=== PATIENT | female | born 1970 | race Caucasian/White ===

== ENCOUNTER 2019-11-08 21:36 | Inpatient (IN) | payer MEDICARE, MEDICAID ==
[~2019-11-08] VITALS: Ht 165.1 cm; Wt 65.1 kg
[2019-11-08 22:11] LABS: HEMATOCRIT 37.4 % (36.0-47.0); HEMOGLOBIN 12.6 g/dl (12.0-15.5); MEAN CORPUSCULAR HEMOGLOBIN 32.4 pg (27.0-33.0); MEAN CORPUSCULAR HGB CONC 33.7 g/dl (32.0-36.5); MEAN CORPUSCULAR VOLUME 96.1 fl (80.0-96.0); PLATELET COUNT, AUTOMATED 237 10^3/uL (150-450); RED BLOOD COUNT 3.89 10^6/uL (4.00-5.40)
[2019-11-08] MEDS ORDERED: AMMO12CR7 TOP (22:43)
[2019-11-08] MEDS ORDERED: DEPA500T2 PO (22:44)
[2019-11-08] MEDS ORDERED: LACT10SO29 PO (22:45)
[2019-11-08] MEDS ORDERED: COLA100C5 PO (22:45)
[2019-11-08] MEDS ORDERED: LORA-674 PO (22:46)
[2019-11-08] MEDS ORDERED: SYNT50TA PO (22:46)
[2019-11-08 22:47] LABS: AMPHETAMINES LEVEL URINE NEGATIVE (NEGATIVE); BARBITURATES URINE NEGATIVE (NEGATIVE); BENZODIAZEPINES URINE NEGATIVE (NEGATIVE); CANNABINOIDS URINE NEGATIVE (NEGATIVE); COCAINE METABOLITE URINE NEGATIVE (NEGATIVE); METHADONE URINE NEGATIVE (NEGATIVE); OPIATES URINE NEGATIVE (NEGATIVE); PHENCYCLIDINE URINE NEGATIVE (NEGATIVE)
[2019-11-08] MEDS ORDERED: THERTAB52 PO (22:48)
[2019-11-08] MEDS ORDERED: LORA1TAB4 PO (22:48)
[2019-11-08] MEDS ORDERED: OXYB15TA14 PO (22:49)
[2019-11-08] MEDS ORDERED: MIRA3350 PO (22:50)
[2019-11-08] MEDS ORDERED: GNP8.6TA PO (22:50)
[2019-11-08] MEDS ORDERED: D 50CAP2 PO (22:52)
[2019-11-08] MEDS ORDERED: COGE1INJ IM (22:53)
[2019-11-08] MEDS ORDERED: BENZ0.5T23 PO (22:53)
[2019-11-08] MEDS ORDERED: DEPA250T2 PO (22:54)
[2019-11-08 22:56] LABS: ACETAMINOPHEN LEVEL < 2.0 UG/ML (10.0-30.0); ALBUMIN 3.4 GM/DL (3.2-5.2); ALT/SGPT 19 U/L (12-78); BILIRUBIN,DIRECT 0.2 MG/DL (0.0-0.2); BILIRUBIN,TOTAL 0.4 MG/DL (0.2-1.0); BLOOD UREA NITROGEN 14 MG/DL (7-18); CALCIUM LEVEL 9.4 MG/DL (8.5-10.1); CARBON DIOXIDE LEVEL 28 MEQ/L (21-32); CHLORIDE LEVEL 100 MEQ/L (98-107); CK-MB VALUE MASS < 1.0 NG/ML (<3.6); CPK CREATINE PHOSPHOKINASE 50 U/L (26-192); CREATININE FOR GFR 0.72 MG/DL (0.55-1.30); GLOMERULAR FILTRATION RATE > 60.0 (>51); GLUCOSE, FASTING 116 MG/DL (70-100); POTASSIUM SERUM 4.1 MEQ/L (3.5-5.1); SALICYLATE LEVEL < 1.7 MG/DL (5.0-30.0); SODIUM LEVEL 133 MEQ/L (136-145); TOTAL PROTEIN 6.4 GM/DL (6.4-8.2); TROPONIN I < 0.02 NG/ML (< 0.10)
[2019-11-08] MEDS ORDERED: CLOZ100T PO (22:57)
[2019-11-08 22:58] LABS: ETHYL ALCOHOL (ETHANOL) < 0.003 % (0.000-0.010)
--- NOTE | 2019-11-08 23:00 | REPVR ---
PROCEDURE INFORMATION: Exam: CT Head Without Contrast Exam date and time: 11/08/2019 10:42 PM Age: 49 years old Clinical indication: Altered mental status/memory loss; Confusion or disorientation TECHNIQUE: Imaging protocol: Computed tomography of the head without contrast. Radiation optimization: All CT scans at this facility use at least one of these dose optimization techniques: automated exposure control; mA and/or kV adjustment per patient size (includes targeted exams where dose is matched to clinical indication); or iterative reconstruction. COMPARISON: No relevant prior studies available. FINDINGS: Brain: There is no acute cortical infarction, intracranial hemorrhage or mass. 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 Ventricles: No ventriculomegaly. 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 Sinuses: The paranasal sinuses are clear. Mastoid air cells: The middle ear cavities and mastoid air cells are clear. Soft tissues: Unremarkable. Vasculature: Atherosclerosis. IMPRESSION: No acute intracranial findings. Electronically signed by: Shauna Garcia On 11/08/2019 23:00:05 PM
[2019-11-08] MEDS ORDERED: GUAI100L6 PO (23:03)
[2019-11-08] MEDS ORDERED: CLOZ50TA PO (23:03)
[2019-11-08] MEDS ORDERED: APAP325T4 PO (23:04)
[2019-11-08] MEDS ORDERED: DIPH50CA PO (23:05)
[2019-11-08] MEDS ORDERED: DEBR6.5S4 OTIC (23:08)
[2019-11-08] MEDS ORDERED: NEOSOI TOP (23:09)
[2019-11-08] MEDS ORDERED: KAOP262S PO (23:10)
[2019-11-08] MEDS ORDERED: [UNRECOGNIZED DRUG - CODE] PO (23:10)
[2019-11-09] MEDS ORDERED: MYLASSUD PO (00:47)
[2019-11-09] MEDS ORDERED: CLOZ25TA3 PO (00:47)
[2019-11-09] MEDS ORDERED: PINK BISMUTH SUSP 524MG/30ML ORAL SYRINGE PO PRN (01:00)
[2019-11-09] MEDS ORDERED: diphenhydrAMINE 50MG CAP PO PRN (01:00)
[2019-11-09] MEDS ORDERED: ACETAMINOPHEN TAB 650MG DOSE (2X325MG) PO PRN (01:00)
[2019-11-09] MEDS ORDERED: MAALOX 30 ML SUSP *UDC PO PRN (01:00)
[2019-11-09] MEDS ORDERED: CARBAMIDE PEROXIDE 6.5% OTIC SOLN 15ML AU PRN (01:00)
[2019-11-09] MEDS ORDERED: LORazepam 1 MG TAB PO PRN (01:00)
[2019-11-09] MEDS ORDERED: guaiFENesin SYRUP 200 MG/10 ML UDC PO PRN (01:00)
--- NOTE | 2019-11-09 01:23 | ECGEPIP ---
[facility] - ED Test Date: 2019-11-08 Pat Name: VAMSHI BURGER Department: Room: - Gender: Female Nurse Chemical Dependency: MARYANN : 1970 Requested By: RUY Castaneda Order Number: [id number] Reading MD: Derrick Whitehead Measurements Intervals [place] Rate: 97 P: 74 UT: 113 QRS: 43 QRSD: 81 T: 3 QT: 327 QTc: 416 Interpretive Statements SINUS RHYTHM WITH SHORT UT INTERVAL NONSPECIFIC T-WAVE ABNORMALITY Comparison tracing not on file Electronically Signed on 11-09-2019 1:23:37 EDT by Derrick Whitehead
[2019-11-09 01:48] VITALS: BP 132/82
--- NOTE | 2019-11-09 03:25 | REP ---
Clinical: Altered mental status. Chest pain . Comparison: None . Technique: PA and lateral. Findings: The mediastinum and cardiac silhouette are normal. The lung benton are clear and without acute consolidation, effusion, or pneumothorax. The skeletal structures are intact and normal. Impression: 1. No acute cardiopulmonary process. Electronically Signed by Rusty Colindres MD 11/09/2019 03:17 A
[2019-11-09] MEDS: LEVOTHYROXINE 50MCG TABLET (0.05MG) PO SCH (06:00)
[2019-11-09 06:35] VITALS: BP 127/78
[2019-11-09] MEDS: oxyBUTYnin *DITROPAN XL* 5 MG TABCR PO SCH (08:52)
[2019-11-09] MEDS: BENZTROPINE 0.5 MG TAB PO SCH ×2 (08:53→21:36)
[2019-11-09] MEDS: DIVALPROEX 250MG *ER* TAB PO SCH (08:53)
[2019-11-09] MEDS: SENNA 8.6 MG TAB (SENOKOT) PO SCH (08:53)
[2019-11-09] MEDS: DOCUSATE SODIUM 100 MG CAP PO SCH ×2 (08:53→21:36)
[2019-11-09] MEDS: LORATADINE 10 MG TAB PO SCH (08:53)
[2019-11-09] MEDS: LACTIC ACID 12% LOTION 225 GM BTL TOP SCH ×2 (08:54→21:37)
[2019-11-09] MEDS: LACTULOSE 20 GM/30 ML SYRUP UD PO SCH ×3 (08:54→21:37)
--- NOTE | 2019-11-09 09:11 | MHHPEPDOC ---
[facility] History & Physical History and Physical DATE OF ADMISSION: Nov 09, 2019 at 00:44 New Patient Teresa Wolf MRN: N/A Date of : N/A Date of Service: 11/09/2019 Chief Complaint "I do not know." History of Present Illness The patient is a 49-year-old woman with apparently severe MR, and paranoid schizophrenia reportedly presents to [facility] with acute mental status changes, increasing aggression and talking of as well as attacking staff. At her baseline, it appears that the patient is much more conversive, pleasant and has never had any aggression problems, but per her staff and her treatment team it appears over the last several months she has begun to become more paranoid, psychotic, bizarre and aggressive. She had been recently started on Clozaril increased 2 days prior to her presentation. She is additionally on a fair amount of Ativan. When I met with the patient she was unable to relate any meaningful history simply staring off mouthing various words. Review Of Systems Unable to obtain due to mental status. Past Psychiatric History Reportedly has been diagnosed with paranoid schizophrenia, sees Dr. Means. Currently had been on Clozaril and Ativan, previously tried on Abilify. No previous admissions in our systems. Allergies Please see below. Family Psychiatric History Unknown due to mental status. Social History Currently lives in a group house, is under legal guardianship through her mother who apparently is quite medically ill and this appears be transferring to her aunt. Substance Abuse History Unclear but no toxicology present. Medical History Has cardiometabolic age related problems. Mental Status Examination General: Well dressed with good hygiene Speech: Minimal. Thought processes: Tangential. MSK: Smooth and coordinated gait, no signs of tremors or involuntary orofacial movements Thought content: Unknown. Abstract reasoning, and computation: Impaired. Description of associations: Impaired. Description of abnormal or psychotic thoughts: Unknown. Judgment: Limited. Insight: Limited. Orientation: Alert and orientated to self and person as well as place. Cognition: Slowed, perhaps at baseline. Recent and remote memory: Unable to query due to mental processes tangentiality. Attention span and concentration: Impaired. Fund of knowledge: Adequate Mood: "okay" Affect: Euthymic with a full range Diagnoses Unspecified psychotic disorder. Intellectual disability, unspecified. Assessment and Plan Unspecified psychotic disorder. We will discontinue Clozaril as poor combination with Ativan. We will start Vraylar 1.5 mg nightly as different mechanism of action especially in treatment resistant cases. Intellectual disability: Unclear baseline, however, reportedly is far off. Disposition Patient will need to be retained further as she is far from her baseline and observed, it does not appear that her UTI has any bearing on her presentation and likely will need to be on an involuntary extension. Problem List 1. Altered thoughts. 2. Risk for aggression. Initial Treatment Plan 1. Patient was admitted on a 9.39 legal status. 2. Complete history was obtained. 3. With patients permission, family will be contacted and database will be expanded. 4. Patients medication regimen will be reviewed and changed accordingly. 5. Patient will be provided with protected environment. 6. Patient will be treated with individual, group, and milieu therapies. 7. Patient will receive supportive psych-education. 8. Discharge planning will commence immediately. 9. Outpatient follow-up treatment will be strongly recommended. 10. The initial treatment plan will focus initially on: Estimated Length Of Stay 3 days. Time Spent 70 minutes with greater than 50% of time spent on counseling/coordination of care. Vital Signs Vital Signs Date Time Temp Pulse Resp B/P (MAP) Pulse Ox O2 Delivery O2 Flow Rate FiO2 11/09/19 06:35 98.1 93 12 127/78 (94) 97 Room Air Laboratory Data 24H Labs Laboratory Tests 2 11/08/19 21:57: Nucleated Red Blood Cells % (auto) 0.0, Anion Gap 5L, Glomerular Filtration Rate > 60.0, Calcium Level 9.4, Total Bilirubin 0.4, Direct Bilirubin 0.2, Aspartate Amino Transf (AST/SGOT) 10, Alanine Aminotransferase (ALT/SGPT) 19, Alkaline Phosphatase 63, Total Creatine Kinase 50, Creatine Kinase MB < 1.0, Creatine Kinase MB Relative Index 2.00, Troponin I < 0.02, Total Protein 6.4, Albumin 3.4, Albumin/Globulin Ratio 1.13, Thyroid Stimulating Hormone (TSH) 2.140, Salicylates Level < 1.7L, Acetaminophen Level < 2.0L, Ethyl Alcohol Level < 0.0 03 11/08/19 22:02: Urine Opiates Screen NEGATIVE, Urine Methadone Screen NEGATIVE, Urine Barbiturates Screen NEGATIVE, Urine Phencyclidine Screen NEGATIVE, Urine Amphetamines Screen NEGATIVE, Urine Benzodiazepines Screen NEGATIVE, Urine Cocaine Metabolite Screen NEGATIVE, Urine Cannabinoids Screen NEGATIVE 11/08/19 22:03: Urine Color YELLOW, Urine Appearance CLEAR, Urine pH 6.0, Urine Specific [place] 1.011, Urine Protein NEGATIVE, Urine Glucose (UA) NEGATIVE, Urine Ketones TRACEH, Urine Blood NEGATIVE, Urine Nitrite NEGATIVE, Urine Bilirubin NEGATIVE, Urine Urobilinogen 0.2, Urine Leukocyte Esterase 1+H, Urine WBC (Auto) 11H, Urine RBC (Auto) 1, Urine Hyaline Casts (Auto) 0, Urine Bacteria (Auto) NEGATIVE, Urine Squamous Epithelial Cells 0, Urine Sperm (Auto) CBC/BMP Laboratory Tests 11/08/19 21:57 Medications Scheduled Ammonium Lactate (Ammonium Lactate) 12% Cream..g., 1 APLCT TOP BID, (Reported) Benztropine Mesylate (Benztropine Mesylate) 0.5 Mg Tablet, 0.5 MG PO BID, (Reported) Cholecalciferol (Vitamin D3) (Vitamin D3) 125 Mcg Capsule, 125 MCG PO DAILY, (Reported) Clozapine (Clozaril) 100 Mg Tablet, 200 MG PO BID, (Reported) Clozapine (Clozapine) 25 Mg Tablet, 50 MG PO QHS, (Reported) Divalproex Sodium (Depakote ER) 500 Mg Tab.er.24h, 1,000 MG PO QHS, (Reported) Divalproex Sodium (Depakote ER) 250 Mg Tab.er.24h, 250 MG PO DAILY, (Reported) Docusate Sodium (Colace) 100 Mg Capsule, 100 MG PO BID, (Reported) Lactulose (Lactulose) 10 Gm/15 Ml Solution, 15 ML PO TID, (Reported) Levothyroxine Sodium (Synthroid) 50 Mcg Tablet, 50 MCG PO DAILY, (Reported) Loratadine (Loratadine) 10 Mg Tablet, 10 MG PO DAILY, (Reported) Multivitamin,Therapeutic (Thera-Tabs) 1 Each Tablet, 1 TAB PO DAILY, (Reported) Oxybutynin Chloride (Oxybutynin Chloride ER) 15 Mg Tab.er.24, 15 MG PO DAILY, (Reported) Polyethylene Glycol 3350 (Miralax) 119 Gm Powder, 17 GRAM PO Q2D, (Reported) dissolve in water Sennosides (Senna Lax) 8.6 Mg Tablet, 17.2 MG PO DAILY, (Reported) Scheduled PRN Acetaminophen (Acetaminophen) 325 Mg Tablet, 650 MG PO Q4H PRN for pain or fever, (Reported) Aluminum/Magnesium/Simeth (Mag-Al Plus Suspension) 30 Ml Oral.susp, 30 ML PO Q4H PRN for HEARTBURN/INDIGESTION, (Reported) Bismuth Subsalicylate (Bismatrol) 525 Mg/15 Ml Oral.susp, 30 ML PO Q4H PRN for AFTER EACH LOOSE STOOL, (Reported) Bismuth Subsalicylate (Kaopectate) 262 Mg/15 Ml Oral.susp, 15 ML PO DAILY PRN for DIARRHEA, (Reported) Carbamide Peroxide (Debrox) 15 Ml Drops, 5 DROP OTIC BID PRN for EXCESSIVE EAR WAX, (Reported) Diphenhydramine HCl (Diphenhydramine HCl) 50 Mg Capsule, 50 MG PO DAILY PRN for ALLERGY SYMPTOMS, (Reported) Guaifenesin (Guaifenesin) 100 Mg/5 Ml Liquid, 10 ML PO Q4HP PRN for COUGH, (Re ported) Lorazepam (Lorazepam) 1 Mg Tablet, 1 MG PO BID PRN for ANXIETY, (Reported) Neomycin/Bacitracin/Polymyxinb (Triple Antibiotic Ointment) 1 Each Oint.pack, 1 APPLIC TOP TID PRN for ITCHING/SWELLING, (Reported) Allergies Coded Allergies: Cashew (Verified Allergy, Unknown, unknown, 11/08/19) aspirin (Verified Allergy, Unknown, unknown, 11/08/19) CIRILO CONTRERAS DO Nov 09, 2019 09:11
[2019-11-09] MEDS ORDERED: PILL CUTTER 1 EACH XX PRN (13:00)
--- NOTE | 2019-11-09 13:27 | HPEPDOC ---
General Date of Admission Nov 09, 2019 at 00:44 Date of Service: Nov 09, 2019 Chief Complaint The patient is a 49-year-old female admitted with a reason for visit of Unspecified Psychosis. Source: Patient, Old records Exam Limitations: Clinical conditions, Other (underlying developmental delay) Timing/Duration: Unsure Associated Symptoms: Unobtainable, Denies Symptoms History of Present Illness 49-year-old female with prior diagnoses of paranoid schizophrenia and developmental delay presents to inpatient psychiatry unit for unspecified psychosis. Hospitalist service was consult and for medical clearance. Due to "patient's clinical condition, unable to obtain any history of use. Patient currently appears to be withdrawn, and anxious. Patient refuses to answer any questions during the entire interview. Home Medications Scheduled Ammonium Lactate (Ammonium Lactate) 12% Cream..g., 1 APLCT TOP BID, (Reported) Benztropine Mesylate (Benztropine Mesylate) 0.5 Mg Tablet, 0.5 MG PO BID, (Reported) Cholecalciferol (Vitamin D3) (Vitamin D3) 125 Mcg Capsule, 125 MCG PO DAILY, (Reported) Clozapine (Clozaril) 100 Mg Tablet, 200 MG PO BID, (Reported) Clozapine (Clozapine) 25 Mg Tablet, 50 MG PO QHS, (Reported) Divalproex Sodium (Depakote ER) 500 Mg Tab.er.24h, 1,000 MG PO QHS, (Reported) Divalproex Sodium (Depakote ER) 250 Mg Tab.er.24h, 250 MG PO DAILY, (Reported) Docusate Sodium (Colace) 100 Mg Capsule, 100 MG PO BID, (Reported) Lactulose (Lactulose) 10 Gm/15 Ml Solution, 15 ML PO TID, (Reported) Levothyroxine Sodium (Synthroid) 50 Mcg Tablet, 50 MCG PO DAILY, (Reported) Loratadine (Loratadine) 10 Mg Tablet, 10 MG PO DAILY, (Reported) Multivitamin,Therapeutic (Thera-Tabs) 1 Each Tablet, 1 TAB PO DAILY, (Reported) Oxybutynin Chloride (Oxybutynin Chloride ER) 15 Mg Tab.er.24, 15 MG PO DAILY, (Reported) Polyethylene Glycol 3350 (Miralax) 119 Gm Powder, 17 GRAM PO Q2D, (Reported) dissolve in water Sennosides (Senna Lax) 8.6 Mg Tablet, 17.2 MG PO DAILY, (Reported) Scheduled PRN Acetaminophen (Acetaminophen) 325 Mg Tablet, 650 MG PO Q4H PRN for pain or fever, (Reported) Aluminum/Magnesium/Simeth (Mag-Al Plus Suspension) 30 Ml Oral.susp, 30 ML PO Q4H PRN for HEARTBURN/INDIGESTION, (Reported) Bismuth Subsalicylate (Bismatrol) 525 Mg/15 Ml Oral.susp, 30 ML PO Q4H PRN for AFTER EACH LOOSE STOOL, (Reported) Bismuth Subsalicylate (Kaopectate) 262 Mg/15 Ml Oral.susp, 15 ML PO DAILY PRN for DIARRHEA, (Reported) Carbamide Peroxide (Debrox) 15 Ml Drops, 5 DROP OTIC BID PRN for EXCESSIVE EAR WAX, (Reported) Diphenhydramine HCl (Diphenhydramine HCl) 50 Mg Capsule, 50 MG PO DAILY PRN for ALLERGY SYMPTOMS, (Reported) Guaifenesin (Guaifenesin) 100 Mg/5 Ml Liquid, 10 ML PO Q4HP PRN for COUGH, (Reported) Lorazepam (Lorazepam) 1 Mg Tablet, 1 MG PO BID PRN for ANXIETY, (Reported) Neomycin/Bacitracin/Polymyxinb (Triple Antibiotic Ointment) 1 Each Oint.pack, 1 APPLIC TOP TID PRN for ITCHING/SWELLING, (Reported) Allergies Coded Allergies: Cashew (Verified Allergy, Unknown, unknown, 11/08/19) aspirin (Verified Allergy, Unknown, unknown, 11/08/19) Past Medical History Medical History Unable to obtain as patient is not cooperative and underlying clinical condition Surgical History Unable to obtain as patient is not cooperative and underlying clinical condition Family History Unable to obtain as patient is not cooperative and underlying clinical condition Social History * Smoker: Denies Alcohol: Denies Drugs: denies Recent Travel/Sick Contacts: Denies: Recent travel, Recent sick contacts Unable to obtain as patient is not cooperative and underlying clinical condition A-FIB/CHADSVASC A-FIB History Current/History of A-Fib/PAF?: No Review of Systems Other systems Unable to obtain due to clinical condition Physical Examination General Exam: Positive: Alert, No Acute Distress (currently appears to be calm but suspicious. She is refusing to answer questions. Appears to be comfortable); Negative: Cooperative Eye Exam: Positive: PERRLA, Conjunctiva & lids normal, EOMI; Negative: Sclera icteric ENT Exam: Positive: Atraumatic, Mucous membr. moist/pink, Pharynx Normal Neck Exam: Positive: Supple; Negative: JVD Chest Exam: Positive: Clear to auscultation, Normal air movement Heart Exam: Positive: Rate Normal, Regular Rhythm, Normal S1, Normal S2; Negative: Murmurs Abdomen Exam: Positive: Normal bowel sounds, Soft; Negative: Tenderness, Hepatospenomegaly Extremity Exam: Positive: Normal pulses; Negative: Clubbing, Edema Skin Exam: Positive: Nl turgor and temperature; Negative: Rash, Breakdown Neuro Exam: Positive: Normal Gait, Normal Speech, Strength at 5/5 X4 ext, Normal Tone, Sensation Intact Psych Exam: Positive: Other (unable to assess mental status as patient refusing to answer questions. Patient appears to be suspicious. Affect appears to be flat.) Vital Signs Vital Signs Date Time Temp Pulse Resp B/P (MAP) Pulse Ox O2 Delivery O2 Flow Rate FiO2 11/09/19 06:35 98.1 93 12 127/78 (94) 97 Room Air Laboratory Data Labs 24H Laboratory Tests 2 11/08/19 21:57: Nucleated Red Blood Cells % (auto) 0.0, Anion Gap 5L, Glomerular Filtration Rate > 60.0, Calcium Level 9.4, Total Bilirubin 0.4, Direct Bilirubin 0.2, Aspartate Amino Transf (AST/SGOT) 10, Alanine Aminotransferase (ALT/SGPT) 19, Alkaline Phosphatase 63, Total Creatine Kinase 50, Creatine Kinase MB < 1.0, Creatine Kinase MB Relative Index 2.00, Troponin I < 0.02, Total Protein 6.4, Albumin 3.4, Albumin/Globulin Ratio 1.13, Thyroid Stimulating Hormone (TSH) 2.140, Salicylates Level < 1.7L, Acetaminophen Level < 2.0L, Ethyl Alcohol Level < 0.003 11/08/19 22:02: Urine Opiates Screen NEGATIVE, Urine Methadone Screen NEGATIVE, Urine Barbiturates Screen NEGATIVE, Urine Phencyclidine Screen NEGATIVE, Urine Amphetamines Screen NEGATIVE, Urine Benzodiazepines Screen NEGATIVE, Urine Cocai ne Metabolite Screen NEGATIVE, Urine Cannabinoids Screen NEGATIVE 11/08/19 22:03: Urine Color YELLOW, Urine Appearance CLEAR, Urine pH 6.0, Urine Specific [place] 1.011, Urine Protein NEGATIVE, Urine Glucose (UA) NEGATIVE, Urine Ketones TRACEH, Urine Blood NEGATIVE, Urine Nitrite NEGATIVE, Urine Bilirubin NEGATIVE, Urine Urobilinogen 0.2, Urine Leukocyte Esterase 1+H, Urine WBC (Auto) 11H, Urine RBC (Auto) 1, Urine Hyaline Casts (Auto) 0, Urine Bacteria (Auto) NEGATIVE, Urine Squamous Epithelial Cells 0, Urine Sperm (Auto) CBC/BMP Laboratory Tests 11/08/19 21:57 Microbiology Microbiology 11/08/19 Urine Culture, Received Pending RAD Interpretation STUDY: CXR Rad Actions: Report Reviewed, Films Reviewed RAD Interpretation: Normal STUDY: CT head Rad Actions: Report Reviewed RAD Interpretation: Normal Assessment/Plan 49-year-old female with past medical history of paranoid schizophrenia and developmental delay [facility]. Currently unable to obtain a detailed history from patient as she is refusing to answer questions. On physical exam, no gross abnormalities were found. Review of her lab work will also reveals possible UTI but not much else. CT head shows no intracranial process and chest x-rays clear. She does seem to have a possible asymptomatic bacteriuria versus UTI although it is difficult to differentiate because patient is not speaking to me. I highly doubt that this is the cause of her current psychosis however and believe that this may just her baseline given her hx of pyschiatric illness. Based on my current exam, I see no contraindications for treatment in the inpatient psychiatry unit. Patient is medically clear. Plan / VTE VTE Prophylaxis Ordered?: Yes Plan Plan Asymptomatic bacteriuria versus UTI Unclear as patient is not speaking to me regarding her symptoms. She does have 11 WBCs in the urine which indicates possible infection. Given her current mental status, would recommend treatment for 3 days. - Recommend Cefpodoxime 100 mg twice a day for 3 days - Follow-up urine culture Paranoid schizophrenia - We'll defer management and medications to psychiatric team Developmental delay - We'll defer management psychiatric team Hospital service to sign off at this time. Please feel free to reconsult us at any time regarding this patient. Thank you for this most interesting consult. RASTA HOFFMAN MD Nov 09, 2019 13:27
[2019-11-09] MEDS: CARIPRAZINE 1.5MG CAPSULE (VRAYLAR) PO SCH (21:36)
[2019-11-09] MEDS: DIVALPROEX 500MG *ER* TAB PO SCH (21:37)
[2019-11-10] MEDS: LEVOTHYROXINE 50MCG TABLET (0.05MG) PO SCH (06:16)
[2019-11-10 06:38] VITALS: BP 125/68
[2019-11-10] MEDS: MIRALAX *UNIT DOSE* 17GM PACKET PO SCH (09:00)
[2019-11-10] MEDS: DOCUSATE SODIUM 100 MG CAP PO SCH ×2 (09:00→21:58)
[2019-11-10] MEDS: LACTIC ACID 12% LOTION 225 GM BTL TOP SCH ×2 (09:00→21:58)
[2019-11-10] MEDS: LACTULOSE 20 GM/30 ML SYRUP UD PO SCH ×3 (09:00→21:58)
[2019-11-10] MEDS: BENZTROPINE 0.5 MG TAB PO SCH ×2 (09:00→21:58)
[2019-11-10] MEDS: oxyBUTYnin *DITROPAN XL* 5 MG TABCR PO SCH (09:00)
[2019-11-10] MEDS: DIVALPROEX 250MG *ER* TAB PO SCH (09:00)
[2019-11-10] MEDS: SENNA 8.6 MG TAB (SENOKOT) PO SCH (09:00)
[2019-11-10] MEDS: LORATADINE 10 MG TAB PO SCH (09:00)
--- NOTE | 2019-11-10 09:28 | MHIPNPDOC ---
[facility] Progress Note Progress Note Inpatient Progress Note Teresa Wolf MRN: N/A Date of : N/A Date of Service: 11/10/2019 History of Present Illness The patient is a 49-year-old woman with apparently severe MR, and paranoid schizophrenia reportedly presents to [facility] with acute mental status changes, increasing aggression and talking of as well as attacking staff. At her baseline, it appears that the patient is much more conversive, pl easant and has never had any aggression problems, but per her staff and her treatment team it appears over the last several months she has begun to become more paranoid, psychotic, bizarre and aggressive. She had been recently started on Clozaril increased 2 days prior to her presentation. She is additionally on a fair amount of Ativan. When I met with the patient she was unable to relate any meaningful history simply staring off mouthing various words. Interval History The patient is met with today. She is able to converse a little more freely, she does reportedly have an upset stomach and had thrown up. She is unable to engage in much of a meeting, she is more conversive with more yes and no answers rather than completely meeting our statements. Her psychiatrist had called the unit responding to a inquiry. The patient otherwise has been staying in her room the entire time. Review Of Systems Unable to engage due to mental status. Psychotherapy None on this visit. Vital Signs Reviewed. Mental Status Examination General: Well dressed with good hygiene Speech: Minimal. Thought processes: Tangential. MSK: Smooth and coordinated gait, no signs of tremors or involuntary orofacial movements Thought content: Unknown. Abstract reasoning, and computation: Impaired. Description of associations: Impaired. Description of abnormal or psychotic thoughts: Unknown. Judgment: Limited. Insight: Limited. Orientation: Alert and orientated to self and person as well as place. Cognition: Slowed, perhaps at baseline. Recent and remote memory: Unable to query due to mental processes tangentiality. Attention span and concentration: Impaired. Fund of knowledge: Adequate Mood: "okay" Affect: Euthymic with a full range Diagnoses Unspecified psychotic disorder. Intellectual disability, unspecified. Assessment and Plan Unspecified psychotic disorder: Continue Vraylar 1.5 mg nightly. Continue to taper down Ativan slowly Intellectual disability: Unclear baseline, however, reportedly is far off. Disposition Patient will need a further inpatient admission due to severe impairing psychosis on top of her intellectual disability it is unclear as to the contribution from each, however, it appears reports support that she is far below her baseline indicating the presence of an acute mental disorder. Time Spent 15 minutes. Wednesday Vital Signs Vital Signs Date Time Temp Pulse Resp B/P (MAP) Pulse Ox O2 Delivery O2 Flow Rate FiO2 11/10/19 06:38 98.1 93 12 125/68 (87) 97 Room Air Current Medications Current Medications Medications (Trade) Dose Ordered Sig/Phyllis Route PRN Reason Start Time Stop Time Status Last Admin Dose Admin Acetaminophen (Tylenol Tab) 650 mg Q4H PRN PO pain or fever 11/09/19 01:00 Al Hydrox/Mg Hydrox/Simethicone (Mylanta) 30 ml Q4H PRN PO HEARTBURN/INDIGESTION 11/09/19 01:00 Benztropine Mesylate (Cogentin) 0.5 mg BID PO 11/09/19 09:00 11/09/19 21:36 Bismuth Subsalicylate (Pepto Bismol) 15 ml DAILY PRN PO DIARRHEA 11/09/19 01:00 Carbamide Peroxide (Debrox) 5 drop BID PRN AU EXCESSIVE EAR WAX 11/09/19 01:00 11/13/19 00:59 Cariprazine (Vraylar) 1.5 mg QHS PO 11/09/19 21:00 11/09/19 21:36 Diphenhydramine HCl (Benadryl) 50 mg DAILY PRN PO ALLERGY SYMPTOMS 11/09/19 01:00 Divalproex Sodium (Depakote Er) 250 mg DAILY PO 11/09/19 09:00 11/09/19 08:53 Divalproex Sodium (Depakote Er) 1,000 mg QHS PO 11/09/19 21:00 11/09/19 21:37 Docusate Sodium (Colace) 100 mg BID PO 11/09/19 09:00 11/09/19 21:36 Guaifenesin (Robitussin) 10 ml Q4HP PRN PO COUGH 11/09/19 01:00 Home Med (Med Rec Complete!) ASDIRECTED XX 11/09/19 01:00 11/09/19 00:50 DC Lactic Acid (Lac-Hydrin 12% Lotion) 1 dose BID TOP 11/09/19 09:00 11/09/19 21:37 Lactulose (Cephulac) 15 ml TID PO 11/09/19 09:00 11/09/19 21:37 Levothyroxine Sodium (Synthroid) 50 mcg DAILY@0600 PO 11/09/19 06:00 11/10/19 06:16 Loratadine (Claritin) 10 mg DAILY PO 11/09/19 09:00 11/09/19 08:53 Lorazepam (Ativan) 0.75 mg BID PRN PO ANXIETY 11/09/19 13:00 Lorazepam (Ativan) 1 mg BID PRN PO ANXIETY 11/09/19 01:00 11/09/19 12:54 DC Oxybutynin Chloride (Ditropan Xl) 15 mg DAILY PO 11/09/19 09:00 11/09/19 08:52 Polyethylene Glycol (Miralax) 1 pkt Q2D PO 11/10/19 09:00 Senna (Senokot) 2 tab DAILY PO 11/09/19 09:00 11/09/19 08:53 Allergies Coded Allergies: Cashew (Verified Allergy, Unknown, unknown, 11/08/19) aspirin (Verified Allergy, Unknown, unknown, 11/08/19) CIRILO CONTRERAS DO Nov 10, 2019 09:28
[2019-11-10 16:00] VITALS: BP 110/80
[2019-11-10] MEDS: DIVALPROEX 500MG *ER* TAB PO SCH (21:58)
[2019-11-10] MEDS: CARIPRAZINE 1.5MG CAPSULE (VRAYLAR) PO SCH (21:58)
[2019-11-11] MEDS: LORazepam 0.5 MG TAB PO PRN (03:21)
[2019-11-11] MEDS: LEVOTHYROXINE 50MCG TABLET (0.05MG) PO SCH (05:48)
[2019-11-11] MEDS ORDERED: OLANZapine ORAL DISINTEGRATING TAB 5MG PO ONE (06:15)
[2019-11-11] MEDS: BENZTROPINE 0.5 MG TAB PO SCH ×2 (08:34→22:07)
[2019-11-11] MEDS: oxyBUTYnin *DITROPAN XL* 5 MG TABCR PO SCH (08:35)
[2019-11-11] MEDS: DOCUSATE SODIUM 100 MG CAP PO SCH ×2 (08:35→22:06)
[2019-11-11] MEDS: DIVALPROEX 250MG *ER* TAB PO SCH (08:35)
[2019-11-11] MEDS: LORATADINE 10 MG TAB PO SCH (08:35)
[2019-11-11] MEDS: SENNA 8.6 MG TAB (SENOKOT) PO SCH (08:35)
[2019-11-11] MEDS: LACTULOSE 20 GM/30 ML SYRUP UD PO SCH ×3 (08:36→22:06)
[2019-11-11] MEDS: LACTIC ACID 12% LOTION 225 GM BTL TOP SCH ×2 (15:19→22:06)
[2019-11-11 16:19] VITALS: BP 123/88
[2019-11-11] MEDS ORDERED: ONDANSETRON 4 MG ORAL DISINTEGRATING TAB PO PRN (17:45)
[2019-11-11 17:58] LABS: BASO % 0.2 % (0.0-1.0); EOS % 0.1 % (0.0-3.0); HEMATOCRIT 38.2 % (36.0-47.0); HEMOGLOBIN 12.8 g/dl (12.0-15.5); LYMPH # 3.9 10^3/uL (1.5-5.0); LYMPH % 31.9 % (24.0-44.0); MEAN CORPUSCULAR HEMOGLOBIN 33.1 pg (27.0-33.0); MEAN CORPUSCULAR HGB CONC 33.5 g/dl (32.0-36.5); MEAN CORPUSCULAR VOLUME 98.7 fl (80.0-96.0); MONO # 1.1 10^3/uL (0.0-0.8); NEUTROPHILS # 7.2 10^3/uL (1.5-8.5); NEUTROPHILS % 58.6 % (36.0-66.0); PLATELET COUNT, AUTOMATED 250 10^3/uL (150-450); RED BLOOD COUNT 3.87 10^6/uL (4.00-5.40); WHITE BLOOD COUNT 12.2 10^3/uL (4.0-10.0)
[2019-11-11 18:31] LABS: ALBUMIN 3.3 GM/DL (3.2-5.2); ALT/SGPT 28 U/L (12-78); BILIRUBIN,TOTAL 0.3 MG/DL (0.2-1.0); BLOOD UREA NITROGEN 14 MG/DL (7-18); CALCIUM LEVEL 9.2 MG/DL (8.5-10.1); CARBON DIOXIDE LEVEL 28 MEQ/L (21-32); CHLORIDE LEVEL 104 MEQ/L (98-107); CREATININE FOR GFR 0.58 MG/DL (0.55-1.30); GLOMERULAR FILTRATION RATE > 60.0 (>51); GLUCOSE, FASTING 92 MG/DL (70-100); SODIUM LEVEL 138 MEQ/L (136-145); TOTAL PROTEIN 6.2 GM/DL (6.4-8.2)
--- NOTE | 2019-11-11 18:35 | MHIPNPDOC ---
[facility] Progress Note Progress Note DATE OF SERVICE: 11/11/19 HISTORY: As per Dr. Navarro: "The patient is a 49-year-old woman with apparently severe MR, and paranoid schizophrenia reportedly presents to [facility] with acute mental status changes, increasing aggression and talking of as well as attacking staff. At her baseline, it appears that the patient is much more conversive, pleasant and has never had any aggression problems, but per her staff and her treatment team it appears over the last several months she has begun to become more paranoid, psychotic, bizarre and aggressive. She had been recently started on Clozaril increased 2 days prior to her presentation. She is additionally on a fair amount of Ativan. When I met with the patient she was unable to relate any meaningful history simply staring off mouthing various words." VITAL SIGNS: See below. NEW TEST RESULTS: See below CURRENT MEDICATIONS: See below. MENTAL STATUS EXAMINATION: Patient is a 49-year old female, who is alert, dressed in hospital clothes, with good hygiene. Speech: Is impoverished, she is repetitive, she needs promptig but even when she is prompted, she says "yeah". Language skills are poor Thought processes including: concrete, delayed. Thought content: she has anxious thoughts about her tax return. Abstract reasoning, and computation: poor. Description of associations: poor. Description of abnormal or psychotic thoughts: I was unable to elicit if she is suffering thought delusions or if he is experiencing TAV hallucinations. She was not responding to internal stimuli at that time and she ws agreable to speak with me, she was not guarded with me Judgment: Poor Insight: Poor. Orientation: Not oriented Recent and remote memory: Limited Attention span and concentration: Poor Language: limited, poor Fund of knowledge: below verge, patient has an intellectual disability Mood: anxious Affect: congruent with mood DIAGNOSES: Unspecified psychotic disorder. Intellectual disability, unspecified. ASSESSMENT: The patient had been vomiting, as it was reported by her Nurse, Shelli Gomez. She said she was going to throw up as I was interviewing her by zoom and she did. Shelli, her Nurse informed me that she had to wash her hair because she had vomit on it. She didn't have fever, her V/S wee stable but I ordered a CBC with differential and a CMP to r/o other medical problems. The patient seems to be anxious due to "taxes", she mentioned this word seveal times and she seemed anxious. Prescribed Zofran too, MANAGEMENT PLAN: -CMP -CBC with differential -Zofran 4 mgs PO Q6H PRN for nausea/vomiting TIME SPENT: 20 minutes. Vital Signs Vital Signs Date Time Temp Pulse Resp B/P (MAP) Pulse Ox O2 Delivery O2 Flow Rate FiO2 11/11/19 16:19 98.9 104 16 123/88 (100) 11/11/19 10:37 Room Air 11/10/19 06:38 97 Current Medications Current Medications Medications (Trade) Dose Ordered Sig/Phyllis Route PRN Reason Start Time Stop Time Status Last Admin Dose Admin Acetaminophen (Tylenol Tab) 650 mg Q4H PRN PO pain or fever 11/09/19 01:00 Al Hydrox/Mg Hydrox/Simethicone (Mylanta) 30 ml Q4H PRN PO HEARTBURN/INDIGESTION 11/09/19 01:00 Benztropine Mesylate (Cogentin) 0.5 mg BID PO 11/09/19 09:00 11/11/19 08:34 Bismuth Subsalicylate (Pepto Bismol) 15 ml DAILY PRN PO DIARRHEA 11/09/19 01:00 Carbamide Peroxide (Debrox) 5 drop BID PRN AU EXCESSIVE EAR WAX 11/09/19 01:00 11/13/19 00:59 Cariprazine (Vraylar) 1.5 mg QHS PO 11/09/19 21:00 11/10/19 21:58 Diphenhydramine HCl (Benadryl) 50 mg DAILY PRN PO ALLERGY SYMPTOMS 11/09/19 01:00 Divalproex Sodium (Depakote Er) 250 mg DAILY PO 11/09/19 09:00 11/11/19 08:35 Divalproex Sodium (Depakote Er) 1,000 mg QHS PO 11/09/19 21:00 11/10/19 21:58 Docusate Sodium (Colace) 100 mg BID PO 11/09/19 09:00 11/11/19 08:35 Guaifenesin (Robitussin) 10 ml Q4HP PRN PO COUGH 11/09/19 01:00 Home Med (Med Rec Complete!) ASDIRECTED XX 11/09/19 01:00 11/09/19 00:50 DC Lactic Acid (Lac-Hydrin 12% Lotion) 1 dose BID TOP 11/09/19 09:00 11/11/19 15:19 Lactulose (Cephulac) 15 ml TID PO 11/09/19 09:00 11/11/19 15:50 Levothyroxine Sodium (Synthroid) 50 mcg DAILY@0600 PO 11/09/19 06:00 11/11/19 05:48 Loratadine (Claritin) 10 mg DAILY PO 11/09/19 09:00 11/11/19 08:35 Lorazepam (Ativan) 0.75 mg BID PRN PO ANXIETY 11/09/19 13:00 11/11/19 03:21 Lorazepam (Ativan) 1 mg BID PRN PO ANXIETY 11/09/19 01:00 11/09/19 12:54 DC Oxybutynin Chloride (Ditropan Xl) 15 mg DAILY PO 11/09/19 09:00 11/11/19 08:35 Polyethylene Glycol (Miralax) 1 pkt Q2D PO 11/10/19 09:00 Senna (Senokot) 2 tab DAILY PO 11/09/19 09:00 11/11/19 08:35 Allergies Coded Allergies: Cashew (Verified Allergy, Unknown, unknown, 11/08/19) aspirin (Verified Allergy, Unknown, unknown, 11/08/19) DORYS MUÑOZ MD Nov 11, 2019 17:12
[2019-11-11] MEDS ORDERED: OLANZapine ORAL DISINTEGRATING TAB 5MG PO SCH (21:00)
[2019-11-11] MEDS: CARIPRAZINE 1.5MG CAPSULE (VRAYLAR) PO SCH (22:04)
[2019-11-11] MEDS: DIVALPROEX 500MG *ER* TAB PO SCH (22:06)
[2019-11-11] MEDS ORDERED: OLANZapine ORAL DISINTEGRATING TAB 5MG PO PRN (22:15)
[2019-11-12] MEDS: LEVOTHYROXINE 50MCG TABLET (0.05MG) PO SCH (06:32)
[2019-11-12 06:39] VITALS: BP 134/69
[2019-11-12] MEDS: LORATADINE 10 MG TAB PO SCH (09:39)
[2019-11-12] MEDS: LACTULOSE 20 GM/30 ML SYRUP UD PO SCH ×3 (09:39→20:21)
[2019-11-12] MEDS: DOCUSATE SODIUM 100 MG CAP PO SCH ×2 (09:39→20:19)
[2019-11-12] MEDS: DIVALPROEX 250MG *ER* TAB PO SCH (09:39)
[2019-11-12] MEDS: oxyBUTYnin *DITROPAN XL* 5 MG TABCR PO SCH (09:39)
[2019-11-12] MEDS: BENZTROPINE 0.5 MG TAB PO SCH ×3 (09:39→20:18)
[2019-11-12] MEDS: MIRALAX *UNIT DOSE* 17GM PACKET PO SCH (09:39)
[2019-11-12] MEDS: SENNA 8.6 MG TAB (SENOKOT) PO SCH (09:39)
[2019-11-12] MEDS: LACTIC ACID 12% LOTION 225 GM BTL TOP SCH ×2 (09:40→20:25)
--- NOTE | 2019-11-12 13:14 | MHIPNPDOC ---
[facility] Progress Note Progress Note DATE OF SERVICE: 11/12/19 HISTORY: As per Dr. Navarro: "The patient is a 49-year-old woman with apparently severe MR, and paranoid schizophrenia reportedly presents to [facility] with acute mental status changes, increasing aggression and talking of as well as attacking staff. At her baseline, it appears t hat the patient is much more conversive, pleasant and has never had any aggression problems, but per her staff and her treatment team it appears over the last several months she has begun to become more paranoid, psychotic, bizarre and aggressive. She had been recently started on Clozaril increased 2 days prior to her presentation. She is additionally on a fair amount of Ativan. When I met with the patient she was unable to relate any meaningful history simply staring off mouthing various words." VITAL SIGNS: See below. NEW TEST RESULTS: See below CURRENT MEDICATIONS: See below. MENTAL STATUS EXAMINATION: Patient is a 49-year old female, who is alert, dressed in hospital clothes, with good hygiene. Speech: Is impoverished, she is less repetitive today, she still needs prompting but even when she is prompted, she continues to agree with me and says "yeah" to everything I say but today, she denies seeing snakes. Language skills are poor Thought processes including: concrete, delayed. Thought content: Unable to assess, she's not talking much, she only says "yeah" Abstract reasoning, and computation: poor. Description of associations: poor. Description of abnormal or psychotic thoughts: Unable to assess, she seems worried, anxious but she is not able to communicate with me and at this time she is not responding to internal stimuli. Judgment: Poor Insight: Poor. Orientation: Not oriented Recent and remote memory: Limited Attention span and concentration: Poor Language: limited, poor Fund of knowledge: below average, patient has an intellectual disability Mood: anxious Affect: congruent with mood DIAGNOSES: Unspecified psychotic disorder. Intellectual disability, unspecified. ASSESSMENT: She has not been nauseous today, she was probably drinking too much fluids. Her CBC with differential and her CMP were within normal limits yesterday. She has a hard time at night, not during the day when she is not agitated, intrusive or aggressive. Her Staff Nurse reported she was feeling a littel bit shaky and this could be secondary to anxiety or to the fact that I ordered Zyprexa Zydis 10 mgs PO last night and the night before. I have increased her Cogentin to 0.5 mgs PO TID and I have discontinued the order for Zyprexa Zydis 10 mgs PO QHS but I kept the order for 5mgs PO daily prn for agita tion. MANAGEMENT PLAN: As above TIME SPENT: 20 minutes. Vital Signs Vital Signs Date Time Temp Pulse Resp B/P (MAP) Pulse Ox O2 Delivery O2 Flow Rate FiO2 11/12/19 07:55 Room Air 11/12/19 06:39 98.5 97 14 134/69 (90) 97 Laboratory Data 24H Labs Laboratory Tests 2 11/11/19 17:47: Immature Granulocyte % (Auto) 0.2, Neutrophils (%) (Auto) 58.6, Lymphocytes (%) (Auto) 31.9, Monocytes (%) (Auto) 9.0H, Eosinophils (%) (Auto) 0.1, Basophils (%) (Auto) 0.2, Neutrophils # (Auto) 7.2, Lymphocytes # (Auto) 3.9, Monocytes # (Auto) 1.1H, Eosinophils # (Auto) 0.0, Basophils # (Auto) 0.0, Nucleated Red Blood Cells % (auto) 0.0 11/11/19 17:48: Anion Gap 6L, Glomerular Filtration Rate > 60.0, Calcium Level 9.2, Total Bilirubin 0.3, Aspartate Amino Transf (AST/SGOT) 14, Alanine Aminotransferase (ALT/SGPT) 28, Alkaline Phosphatase 65, Total Protein 6.2L, Albumin 3.3, Albumin/Globulin Ratio 1.14 CBC/BMP Laboratory Tests 11/11/19 17:47 11/11/19 17:48 Current Medications Current Medications Medications (Trade) Dose Ordered Sig/Phyllis Route PRN Reason Start Time Stop Time Status Last Admin Dose Admin Acetaminophen (Tylenol Tab) 650 mg Q4H PRN PO pain or fever 11/09/19 01:00 Al Hydrox/Mg Hydrox/Simethicone (Mylanta) 30 ml Q4H PRN PO HEARTBURN/INDIGESTION 11/09/19 01:00 Benztropine Mesylate (Cogentin) 0.5 mg BID PO 11/09/19 09:00 11/12/19 09:39 Bismuth Subsalicylate (Pepto Bismol) 15 ml DAILY PRN PO DIARRHEA 11/09/19 01:00 Carbamide Peroxide (Debrox) 5 drop BID PRN AU EXCESSIVE EAR WAX 11/09/19 01:00 11/13/19 00:59 Cariprazine (Vraylar) 1.5 mg QHS PO 11/09/19 21:00 11/11/19 22:04 Diphenhydramine HCl (Benadryl) 50 mg DAILY PRN PO ALLERGY SYMPTOMS 11/09/19 01:00 Divalproex Sodium (Depakote Er) 250 mg DAILY PO 11/09/19 09:00 11/12/19 09:39 Divalproex Sodium (Depakote Er) 1,000 mg QHS PO 11/09/19 21:00 11/11/19 22:06 Docusate Sodium (Colace) 100 mg BID PO 11/09/19 09:00 11/12/19 09:39 Guaifenesin (Robitussin) 10 ml Q4HP PRN PO COUGH 11/09/19 01:00 Home Med (Med Rec Complete!) ASDIRECTED XX 11/09/19 01:00 11/09/19 00:50 DC Lactic Acid (Lac-Hydrin 12% Lotion) 1 dose BID TOP 11/09/19 09:00 11/12/19 09:40 Lactulose (Cephulac) 15 ml TID PO 11/09/19 09:00 11/12/19 09:39 Levothyroxine Sodium (Synthroid) 50 mcg DAILY@0600 PO 11/09/19 06:00 11/12/19 06:32 Loratadine (Claritin) 10 mg DAILY PO 11/09/19 09:00 11/12/19 09:39 Lorazepam (Ativan) 0.75 mg BID PRN PO ANXIETY 11/09/19 13:00 11/11/19 03:21 Lorazepam (Ativan) 1 mg BID PRN PO ANXIETY 11/09/19 01:00 11/09/19 12:54 DC Olanzapine (ZyPREXA ZYDIS) 5 mg DAILYPRN PRN PO AGITATION 11/11/19 22:15 Olanzapine (ZyPREXA ZYDIS) 10 mg QHS PO 11/11/19 21:00 11/11/19 22:19 Ondansetron HCl (Zofran Odt) 4 mg Q6HP PRN PO NAUSEA OR VOMITING 11/11/19 17:45 11/11/19 17:46 Oxybutynin Chloride (Ditropan Xl) 15 mg DAILY PO 11/09/19 09:00 11/12/19 09:39 Polyethylene Glycol (Miralax) 1 pkt Q2D PO 11/10/19 09:00 11/12/19 09:39 Senna (Senokot) 2 tab DAILY PO 11/09/19 09:00 11/12/19 09:39 Allergies Coded Allergies: Cashew (Verified Allergy, Unknown, unknown, 11/08/19) aspirin (Verified Allergy, Unknown, unknown, 11/08/19) DORYS MUÑOZ MD Nov 12, 2019 11:21
[2019-11-12 16:20] VITALS: BP 130/71
[2019-11-12] MEDS ORDERED: OLANZapine ORAL DISINTEGRATING TAB 5MG PO PRN (17:15)
[2019-11-12] MEDS: CARIPRAZINE 1.5MG CAPSULE (VRAYLAR) PO SCH (20:18)
[2019-11-12] MEDS: LORazepam 0.5 MG TAB PO PRN (20:22)
[2019-11-12] MEDS: DIVALPROEX 500MG *ER* TAB PO SCH (20:22)
[2019-11-13] MEDS: LEVOTHYROXINE 50MCG TABLET (0.05MG) PO SCH (05:52)
[2019-11-13 06:35] VITALS: BP 110/70
--- NOTE | 2019-11-13 09:10 | MHIPNPDOC ---
[facility] Progress Note Progress Note Inpatient Progress Note Teresa Wolf MRN: N/A Date of : N/A Date of Service: 11/13/2019 History of Present Illness The patient is a 49-year-old woman with apparently severe MR, and paranoid schizophrenia reportedly presents to [facility] with acute mental status changes, increasing aggression and talking of as well as attacking staff. At her baseline, it appears that the patient is much more conversive, p leasant and has never had any aggression problems, but per her staff and her treatment team it appears over the last several months she has begun to become more paranoid, psychotic, bizarre and aggressive. She had been recently started on Clozaril increased 2 days prior to her presentation. She is additionally on a fair amount of Ativan. When I met with the patient she was unable to relate any meaningful history simply staring off mouthing various words. Interval History The patient has attempted to be met with today. She is much more able to answer questions. She has had difficulty over the weekend where she needed a 1:1 sitter as she was eating various in and around objects. The patient was notably more sedate. However, she does not able to participate in any meaningful interview. Her GI upset had resolved. Collateral information from her psychologist reveals a chronic relapsing-remitting course of this rather than a subsequently worsening course that had been related earlier. Apparently, she is being worked up for dementia at this time. Review Of Systems Unable to participate due to mental status. Psychotherapy None on this visit. Vital Signs Reviewed. Mental Status Examination General: Well dressed with good hygiene Speech: Minimal. Thought processes: Tangential. MSK: Smooth and coordinated gait, no signs of tremors or involuntary orofacial movements Thought content: Unknown. Abstract reasoning, and computation: Impaired. Description of associations: Impaired. Description of abnormal or psychotic thoughts: Unknown. Judgment: Limited. Insight: Limited. Orientation: Alert and orientated to self and person as well as place. Cognition: Slowed, perhaps at baseline. Recent and remote memory: Unable to query due to mental processes tangentiality. Attention span and concentration: Impaired. Fund of knowledge: Adequate Mood: "okay" Affect: Euthymic with a full range Diagnoses Unspecified psychotic disorder. Intellectual disability, unspecified. Assessment and Plan Unspecified psychotic disorder: Increase Vraylar to 3 mg nightly. Continue Ativan at 0.75 mg daily. Intellectual disability: Unclear baseline, however, reportedly is far off. Disposition Patient will likely be dispositioned back to home as it could have been agitation from Clozaril that provoked her presentation relapsing-remitting courses consistent with a type of dementia. Time Spent 15 minutes [id number]. Wednesday Vital Signs Vital Signs Date Time Temp Pulse Resp B/P (MAP) Pulse Ox O2 Delivery O2 Flow Rate FiO2 11/13/19 06:35 98.4 89 14 110/70 (83) 97 Room Air Current Medications Current Medications Medications (Trade) Dose Ordered Sig/Phyllis Route PRN Reason Start Time Stop Time Status Last Admin Dose Admin Acetaminophen (Tylenol Tab) 650 mg Q4H PRN PO pain or fever 11/09/19 01:00 Al Hydrox/Mg Hydrox/Simethicone (Mylanta) 30 ml Q4H PRN PO HEARTBURN/INDIGESTION 11/09/19 01:00 Benztropine Mesylate (Cogentin) 0.5 mg BID PO 11/09/19 09:00 11/12/19 11:21 DC 11/12/19 09:39 Benztropine Mesylate (Cogentin) 0.5 mg TID PO 11/12/19 16:00 11/12/19 20:18 Bismuth Subsalicylate (Pepto Bismol) 15 ml DAILY PRN PO DIARRHEA 11/09/19 01:00 Carbamide Peroxide (Debrox) 5 drop BID PRN AU EXCESSIVE EAR WAX 11/09/19 01:00 11/13/19 00:59 DC Cariprazine (Vraylar) 1.5 mg QHS PO 11/09/19 21:00 11/12/19 20:18 Diphenhydramine HCl (Benadryl) 50 mg DAILY PRN PO ALLERGY SYMPTOMS 11/09/19 01:00 Divalproex Sodium (Depakote Er) 250 mg DAILY PO 11/09/19 09:00 11/12/19 09:39 Divalproex Sodium (Depakote Er) 1,000 mg QHS PO 11/09/19 21:00 11/12/19 20:22 Docusate Sodium (Colace) 100 mg BID PO 11/09/19 09:00 11/12/19 20:19 Guaifenesin (Robitussin) 10 ml Q4HP PRN PO COUGH 11/09/19 01:00 Home Med (Med Rec Complete!) ASDIRECTED XX 11/09/19 01:00 11/09/19 00:50 DC Lactic Acid (Lac-Hydrin 12% Lotion) 1 dose BID TOP 11/09/19 09:00 11/12/19 09:40 Lactulose (Cephulac) 15 ml TID PO 11/09/19 09:00 11/12/19 20:21 Levothyroxine Sodium (Synthroid) 50 mcg DAILY@0600 PO 11/09/19 06:00 11/13/19 05:52 Loratadine (Claritin) 10 mg DAILY PO 11/09/19 09:00 11/12/19 09:39 Lorazepam (Ativan) 0.75 mg BID PRN PO ANXIETY 11/09/19 13:00 11/12/19 20:22 Lorazepam (Ativan) 1 mg BID PRN PO ANXIETY 11/09/19 01:00 11/09/19 12:54 DC Olanzapine (ZyPREXA ZYDIS) 5 mg DAILYPRN PRN PO AGITATION 11/11/19 22:15 11/12/19 17:18 DC 11/12/19 17:07 Olanzapine (ZyPREXA ZYDIS) 5 mg Q6HP PRN PO ANXIETY/AGITATION 11/12/19 17:15 Olanzapine (ZyPREXA ZYDIS) 10 mg QHS PO 11/11/19 21:00 11/12/19 11:19 DC 11/11/19 22:19 Ondansetron HCl (Zofran Odt) 4 mg Q6HP PRN PO NAUSEA OR VOMITING 11/11/19 17:45 11/11/19 17:46 Oxybutynin Chloride (Ditropan Xl) 15 mg DAILY PO 11/09/19 09:00 11/12/19 09:39 Polyethylene Glycol (Miralax) 1 pkt Q2D PO 11/10/19 09:00 11/12/19 09:39 Senna (Senokot) 2 tab DAILY PO 11/09/19 09:00 11/12/19 09:39 Allergies Coded Allergies: Cashew (Verified Allergy, Unknown, unknown, 11/08/19) aspirin (Verified Allergy, Unknown, unknown, 11/08/19) CIRILO CONTRERAS DO Nov 13, 2019 09:10
[2019-11-13] MEDS: LORATADINE 10 MG TAB PO SCH (10:04)
[2019-11-13] MEDS: DIVALPROEX 250MG *ER* TAB PO SCH (10:05)
[2019-11-13] MEDS: BENZTROPINE 0.5 MG TAB PO SCH ×3 (10:05→21:44)
[2019-11-13] MEDS: oxyBUTYnin *DITROPAN XL* 5 MG TABCR PO SCH (10:05)
[2019-11-13] MEDS: DOCUSATE SODIUM 100 MG CAP PO SCH ×2 (10:05→21:44)
[2019-11-13] MEDS: SENNA 8.6 MG TAB (SENOKOT) PO SCH (10:05)
[2019-11-13] MEDS: LACTULOSE 20 GM/30 ML SYRUP UD PO SCH ×3 (10:05→21:46)
[2019-11-13] MEDS: LACTIC ACID 12% LOTION 225 GM BTL TOP SCH ×2 (10:05→21:46)
[2019-11-13] MEDS ORDERED: LORazepam 0.5 MG TAB PO PRN ×2 (11:45→14:00)
[2019-11-13] MEDS ORDERED: LORazepam 0.5 MG TAB PO STA (14:04)
[2019-11-13 16:02] VITALS: BP 132/83
[2019-11-13] MEDS ORDERED: CARIPRAZINE 3MG CAPSULE (VRAYLAR) PO SCH (21:00)
[2019-11-13] MEDS: DIVALPROEX 500MG *ER* TAB PO SCH (21:45)
[2019-11-14] MEDS: LEVOTHYROXINE 50MCG TABLET (0.05MG) PO SCH (06:12)
[2019-11-14 06:19] VITALS: BP 125/74
--- NOTE | 2019-11-14 09:38 | MHDSPDOC ---
[facility] Discharge Summary Discharge Summary DATE OF ADMISSION: Nov 09, 2019 at 00:44 DATE OF DISCHARGE: 11/14/19 Discharge Teresa Wolf MRN: N/A Date of : N/A Date of Service: 11/14/2019 Diagnoses Unspecified psychotic disorder. Intellectual disability, unspecified. History of Present Illness The patient is a 49-year-old woman with apparently severe MR, and paranoid schizophrenia reportedly presents to [facility] with acute mental status changes, increasing aggression and talking of as well as attacking staff. At her baseline, it appears that the patient is much more conversive, pleasant and has never had any aggression problems, but per her staff and her treatment team it appears over the last several months she has begun to become more paranoid, psychotic, bizarre and aggressive. She had been recently started on Clozaril increased 2 days prior to her presentation. She is additionally on a fair amount of Ativan. When I met with the patient she was unable to relate any meaningful history simply staring off mouthing various words. Consultants Involved Hospitalist/PCP screening Treatment and Progress On The Unit The patient was admitted to the inpatient mental health unit. It became quite obvious when she was admitted that she had significant intellectual disabilities, she did require a 1 to 1 sitter to prevent from eating various objects. However, she was changed off of her cholesterol onto Vraylar increased to 3 mg nightly. Her Ativan was initially attempted to be tapered off as this has evidence that it increases agitation and intellectually disabled individuals, however she became more agitated, required some Zyprexa which did help calm her, but she had noted dyskinesia response to it each time. She then did stabilize but her baseline appeared to be relatively low with just some basic conversation and yes or no answers. Further information from our psychologist revealed a concern for dementia and that this is episodic rather than a continuous decline that had no notable cause. Discharge Assessment 49-year-old woman with likely significant intellectual disability and possible dementia related psychosis presents and is treated appropriately with Vraylar. She makes some progress, however her baseline is likely quite low, after establishing that her aggression is no longer relevant to her presentation, she is triaged back to [facility] back [facility] as this would be most prudent as her intellectual function is quite low and she would not do well with continued stay. She likely could have dementia related psychosis, however she is slated for neuropsychological testing to demonstrate this more fluently. Mental Status Examination General: Well dressed with good hygiene Speech: Spontaneous and fluid Thought processes: Linear and logical MSK: Smooth and coordinated gait, no signs of tremors or involuntary orofacial movements Thought content: Future orientated Abstract reasoning, and computation: Intact Description of associations: Intact Description of abnormal or psychotic thoughts: Denies any suicidal or homicidal ideation. Denies any auditory or visual hallucinations. Does not appear to be responding to internal stimuli. Does not appear to be endorsing any bizarre or paranoid ideation. Judgment: fair Insight: fair Orientation: Alert and orientated 3 Cognition: Grossly normal Recent and remote memory: Intact Attention span and concentration: Intact Fund of knowledge: Adequate Mood: "okay" Affect: Euthymic with a full range General: Well dressed with good hygiene Speech: Minimal. Thought processes: Tangential. MSK: Smooth and coordinated gait, no signs of tremors or involuntary orofacial movements Thought content: Unknown. Abstract reasoning, and computation: Impaired. Description of associations: Impaired. Description of abnormal or psychotic thoughts: Unknown. Judgment: Limited. Insight: Limited. Orientation: Alert and orientated to self and person as well as place. Cognition: Slowed, perhaps at baseline. Recent and remote memory: Unable to query due to mental processes tangentiality. Attention span and concentration: Impaired. Fund of knowledge: Adequate Mood: "okay" Affect: Euthymic with a full range Follow Up The social work team worked during the predischarge meeting in order to evaluate for further issues of lethality address them fully before discharge. They worked on safety planning with the patient's family members in order to ensure that the patient will have a safe and effective discharge. Time Spent The amount of time spent in the coordination of care for this patient was approximately 45 minutes. Wednesday Vital Signs/I&Os Vital Signs Date Time Temp Pulse Resp B/P (MAP) Pulse Ox O2 Delivery O2 Flow Rate FiO2 11/14/19 06:19 97.9 92 14 125/74 (91) 97 Room Air Laboratory Data Microbiology Microbiology 11/08/19 Urine Culture - Final, Complete Medications Scheduled Ammonium Lactate (Ammonium Lactate) 12% Cream..g., 1 APLCT TOP BID, (Reported) Benztropine Mesylate (Benztropine Mesylate) 0.5 Mg Tablet, 0.5 MG PO BID, (Reported) Cariprazine HCl (Vraylar) 3 Mg Capsule, 3 MG PO QHS for thoughts for 30 Days, #30 Cholecalciferol (Vitamin D3) (Vitamin D3) 125 Mcg Capsule, 125 MCG PO DAILY, (Reported) Divalproex Sodium (Depakote ER) 500 Mg Tab.er.24h, 1,000 MG PO QHS, (Reported) Divalproex Sodium (Depakote ER) 250 Mg Tab.er.24h, 250 MG PO DAILY, (Reported) Docusate Sodium (Colace) 100 Mg Capsule, 100 MG PO BID, (Reported) Lactulose (Lactulose) 10 Gm/15 Ml Solution, 15 ML PO TID, (Reported) Levothyroxine Sodium (Synthroid) 50 Mcg Tablet, 50 MCG PO DAILY, (Reported) Loratadine (Loratadine) 10 Mg Tablet, 10 MG PO DAILY, (Reported) Multivitamin,Therapeutic (Thera-Tabs) 1 Each Tablet, 1 TAB PO DAILY, (Reported) Oxybutynin Chloride (Oxybutynin Chloride ER) 15 Mg Tab.er.24, 15 MG PO DAILY, (Reported) Polyethylene Glycol 3350 (Miralax) 119 Gm Powder, 17 GRAM PO Q2D, (Reported) dissolve in water Sennosides (Senna Lax) 8.6 Mg Tablet, 17.2 MG PO DAILY, (Reported) Scheduled PRN Acetaminophen (Acetaminophen) 325 Mg Tablet, 650 MG PO Q4H PRN for pain or fever, (Reported) Aluminum/Magnesium/Simeth (Mag-Al Plus Suspension) 30 Ml Oral.susp, 30 ML PO Q4H PRN for HEARTBURN/INDIGESTION, (Reported) Bismuth Subsalicylate (Bismatrol) 525 Mg/15 Ml Oral.susp, 30 ML PO Q4H PRN for AFTER EACH LOOSE STOOL, (Reported) Bismuth Subsalicylate (Kaopectate) 262 Mg/15 Ml Oral.susp, 15 ML PO DAILY PRN for DIARRHEA, (Reported) Carbamide Peroxide (Debrox) 15 Ml Drops, 5 DROP OTIC BID PRN for EXCESSIVE EAR WAX, (Reported) Diphenhydramine HCl (Diphenhydramine HCl) 50 Mg Capsule, 50 MG PO DAILY PRN for ALLERGY SYMPTOMS, (Reported) Guaifenesin (Guaifenesin) 100 Mg/5 Ml Liquid, 10 ML PO Q4HP PRN for COUGH, (Reported) Lorazepam (Lorazepam) 1 Mg Tablet, 1 MG PO BID PRN for ANXIETY, (Reported) Neomycin/Bacitracin/Polymyxinb (Triple Antibiotic Ointment) 1 Each Oint.pack, 1 APPLIC TOP TID PRN for ITCHING/SWELLING, (Reported) Allergies Coded Allergies: Cashew (Verified Allergy, Unknown, unknown, 11/08/19) aspirin (Verified Allergy, Unknown, unknown, 11/08/19) CIRILO CONTRERAS DO Nov 14, 2019 09:38
[2019-11-14] MEDS: LACTULOSE 20 GM/30 ML SYRUP UD PO SCH (09:52)
[2019-11-14] MEDS: DOCUSATE SODIUM 100 MG CAP PO SCH (09:53)
[2019-11-14] MEDS: SENNA 8.6 MG TAB (SENOKOT) PO SCH (09:53)
[2019-11-14] MEDS: BENZTROPINE 0.5 MG TAB PO SCH (09:53)
[2019-11-14] MEDS: LACTIC ACID 12% LOTION 225 GM BTL TOP SCH (09:53)
[2019-11-14] MEDS: oxyBUTYnin *DITROPAN XL* 5 MG TABCR PO SCH (09:53)
[2019-11-14] MEDS: MIRALAX *UNIT DOSE* 17GM PACKET PO SCH (09:53)
[2019-11-14] MEDS: DIVALPROEX 250MG *ER* TAB PO SCH (09:53)
[2019-11-14] MEDS: LORATADINE 10 MG TAB PO SCH (09:53)
[2019-11-14] MEDS ORDERED: VRAY3CAP PO (09:57)
== END 2019-11-14 14:30 | disposition home or self-care (01) | DRG 885 ==
LOC: M ED 21:36 → M ED INP 11-09 00:44 → M PSY 11-09 01:38
PROVIDERS: ADMIT Psychiatry & Neurology Addiction Medicine; ATTEND Psychiatry & Neurology Addiction Medicine
DX: F29 Unspecified psychosis not due to a substance or known physiological condition (principal); N39.0 Urinary tract infection, site not specified; F72 Severe intellectual disabilities; F03.91 Unspecified dementia, unspecified severity, with behavioral disturbance; F20.0 Paranoid schizophrenia; Z79.899 Other long term (current) drug therapy; Z91.018 Allergy to other foods; Z88.6 Allergy status to analgesic agent